=== PATIENT | female | born 1985 | race Two or more races ===

== ENCOUNTER 2025-04-30 04:43 | Emergency (ER) | payer MEDICAID, OTHER ==
[~2025-04-30] VITALS: Ht 170.2 cm; Wt 82.0 kg
[2025-04-30 04:43] VITALS: TEMP 98.6
--- NOTE | 2025-04-30 05:14 | ED.PDOC ---
History of Present Illness HPI Comments 40 y/o obese F is BIBA for 2x day history of epigastric abdominal pain, that radiates, diffusely, across her entire abdomen, with associated nausea and vomiting and shortness of breath. Patient endorses on progressively worsening symptoms following initial, unprovoked onset. She reports a relevant history of asthma, cholecystectomy, and and having no relief with her respiratory symptoms after using her albuterol. Vitals were noted by EMS to have been stable and within normal limits, with exception of diffused wheezing. En route, patient received 1x Albuterol breathing treatment and 1x PO and 2x IV doses of 4mg Zofran. Patient denies any bloody or bilious vomitus, urinary symptoms, diarrhea, fever, chills, or further associated symptoms. Time Seen by MD: 04:50 Reviewed Notes: Nurses Notes, Table Machine Operator Notes, Medications, Allergies Allergies: Coded Allergies: NO KNOWN ALLERGIES (Unverified , 04/30/25) Information Source: Patient, Emergency Med Personnel Mode of Arrival: EMS Severity: Moderate Timing: Days Duration: Since onset Prehospital treatment: 12 Lead EKG, Breathing Tx (Albuterol ), Problem Manager, Treatment (Zofran ) Past Medical History PAST MEDICAL HISTORY: Asthma, Depression Past Medical History (Other): Chronic nerve pain Surgical History: Cholecystectomy, Surgical History (Other): Bladder sling CLASSIFICATION COUNSELOR History: No Pertinent CLASSIFICATION COUNSELOR History Family History Family History: Unknown Social History Smoker: Non-Smoker Alcohol: Denies ETOH Use Drugs: Denies Drug Use Lives In: Home All Other Systems: Reviewed and Negative (As per HPI) Physical Exam General Appearance: Mild Distress, Obese HEENT: Normal ENT Inspection, Pharynx Normal, TMs Normal Neck: Full Range of Motion, Non-Tender, Normal, Normal Inspection Respiratory: Chest Non-Tender, No Accessory Muscle Use, No Respiratory Distress, Wheezing (scattered expiratory wheezes) Cardiovascular: No Edema, No JVD, No Murmur, No Gallop, Normal Peripheral Pulses, Regular Rate/Rhythm Breast Exam: Deferred Gastrointestinal: Epigastric (tenderness ), No Organomegaly, No Pulsatile Mass, Normal Bowel Sounds, Soft, Tenderness (epigastric region ) Genitalia: Deferred Pelvic: Deferred Rectal: Deferred Extremities: No calf tenderness, Normal capillary refill, Normal inspection, Normal range of motion, Non-tender, No pedal edema Musculoskeletal : Apperance: Normal Neurologic: Alert, program director/traffic director II-XII nml as Tested, No Motor Deficits, Normal Affect, Normal Mood, No Sensory Deficits Cerebellar Function: Normal Reflexes: Normal Skin: Dry, Normal Color, Warm Lymphatic: No Adenopathy Was a procedure done? Was a procedure done?: No Differential Dx Considerations may include: gastritis, gastroenteritis, GERD, PUD, cholelithiasis, cholecystitis, UTI, viral syndrome, , pancreatitis, colitis, sbo, ischemic bowel, appendicitis, p erforated viscus, spoiled food, among others X-Ray, Labs, Meds, VS Vital Signs Date Time Temp Pulse Resp B/P (MAP) Pulse Ox O2 Delivery O2 Flow Rate FiO2 04/30/25 05:53 84 16 127/80 04/30/25 05:23 95 24 135/88 04/30/25 05:15 20 96 Room Air* 0 21 04/30/25 04:43 98.6 85 26 133/78 (96) 100 98.6 Lab Test 04/30/25 05:22 Range/Units White Blood Count 17.3 H 4.4-10.8 10^3/uL Red Blood Count 5.38 H 4.0-5.20 10^6/uL Hemoglobin 15.3 12.2-16.2 g/dL Hematocrit 44.9 36.0-46.0 % Mean Corpuscular Volume 83.5 80.0-100.0 fL Mean Corpuscular Hemoglobin 28.4 28.0-32.0 pg Mean Corpuscular Hemoglobin Concent 34.1 32.0-36.0 g/dL Red Cell Distribution Width 12.9 11.8-14.3 % Platelet Count 359 140-450 10^3/uL Mean Platelet Volume 8.5 6.9-10.8 fL Neutrophils (%) (Auto) 79.4 37.0-80.0 % Lymphocytes (%) (Auto) 15.6 10.0-50.0 % Monocytes (%) (Auto) 4.1 0.0-12.0 % Eosinophils (%) (Auto) 0.1 0.0-7.0 % Basophils (%) (Auto) 0.8 0.0-2.0 % Neutrophils # (Auto) 13.8 H 1.6-8.6 10 ^3/uL Lymphocytes # (Auto) 2.7 0.4-5.4 10 ^3/uL Monocytes # (Auto) 0.7 0-1.3 10 ^3/uL Eosinophils # (Auto) 0 0-0.8 10 ^3/uL Basophils # (Auto) 0.1 0-0.2 10 ^3/uL Nucleated Red Blood Cells 0.0 % Sodium Level 137 136-145 mmol/L Potassium Level 3.6 3.5-5.1 mmol/L Chloride Level 103 98-107 mmol/L Carbon Dioxide Level 17 L 20-31 mmol/L Anion Gap 17 H 5-15 Blood Urea Nitrogen 13 9-23 mg/dL Creatinine 0.75 0.550-1.02 mg/dL Glomerular Filtration Rate Calc 104 >90 mL/min BUN/Creatinine Ratio 17.3 10.0-20.0 Serum Glucose 203 H 74-106 mg/dL Calcium Level 9.4 8.7-10.4 mg/dL Total Bilirubin 0.7 0.2-1.0 mg/dL Aspartate Amino Transferase (AST) 19 <34 U/L Alanine Aminotransferase (ALT) 18 7-40 U/L Alkaline Phosphatase 84 46-116 U/L Total Protein 7.3 5.7-8.2 g/dL Albumin 4.8 3.2-4.8 g/dL Lipase 32 12-53 U/L Current Medications Medications (Trade) Dose Ordered Sig/Brit Route Start Time Stop Time Status Last Admin Ondansetron HCl (Zofran) 4 mg ONCE ONCE IV 04/30/25 05:00 04/30/25 05:01 DC 04/30/25 05:22 Sodium Chloride 1,000 ml @ 1,000 mls/hr Q1H ONCE IVB 04/30/25 05:00 04/30/25 05:59 DC 04/30/25 05:22 Morphine Sulfate 4 mg ONCE ONCE IV 04/30/25 05:00 04/30/25 05:01 DC 04/30/25 05:23 Dexamethasone Sodium Phosphate (Decadron Injection) 10 mg ONCE ONCE IV 04/30/25 05:00 04/30/25 05:01 DC 04/30/25 05:22 Albuterol (Ventolin Medneb) 5 mg ONCE ONCE NEB 04/30/25 05:00 04/30/25 05:01 DC 04/30/25 05:15 Metoclopramide HCl (Reglan Injection) 10 mg ONCE ONCE IV 04/30/25 05:45 04/30/25 05:46 DC 04/30/25 05:42 Diphenhydramine HCl (Benadryl Injection) 25 mg ONCE ONCE IV 04/30/25 05:45 04/30/25 05:46 DC 04/30/25 05:42 Time of 1ST Reevaluation: 05:20 Reevaluation 1ST: Unchanged Time of 2ND Reevaluation: 08:32 Reevaluation 3RD: pt eloped Patient Education/Counseling: Diagnosis, Treatment, Need For Follow Up Family Education/Counseling: No Family Present Comments pt refused to stay for the ct and wants to sign out AMA, understanding the risks and benefits, and had her questions answered. after an lengthy discussion, pt decided to stay despite of agreeing to saty after our conversation, pt eloped after all Departure 1 Departure Time of Disposition: 08:32 Impression: Primary Impression: Abdominal pain Qualified Codes: R10.9 - Unspecified abdominal pain Additional Impression: Leukocytosis Qualified Codes: D72.829 - Elevated white blood cell count, unspecified Disposition: LEFT AWOL/ELOPED Condition: Other (unknown) Critical Care Note Critical Care Time?: Yes (45 min-critical care time only) Critical care comment: Due to concerns for patients condition deteriorating, the care required my high est level of attention and readiness to intervene. I assessed the patient, reviewed the medical records, ordered the appropriate tests and treatments, then reassessed for results and responsiveness. I communicated with medical personnel and consultants and formulated a plan of care. Total critical care time excludes any procedures Stability Stability form required: No Heart Score Heart Score: Heart Score Response (Comments) Value History N/A 0 EKG N/A 0 Age N/A 0 Risk Factors N/A 0 Troponin N/A 0 Total 0 I personally scribed for ROSALIND CURRIE MD ([email or web address]) on 04/30/25 at 05:14. Electronically submitted by Albino Burk ([email or web address]). ROSALIND CURRIE MD Apr 30, 2025 05:14 KWAME CRANE MD Apr 30, 2025 07:07
[2025-04-30 05:15] VITALS: O2SAT 96
[2025-04-30] MEDS: ALBUTEROL SULF 2.5 MG/0.5ML(0.5%) NEB SOLN NEB ONE (05:15)
[2025-04-30] MEDS: DexAMETHasone SOD PHOS 10MG/1ML VIAL INJ IV ONE (05:22)
[2025-04-30] MEDS: SODIUM CHLORIDE 0.9% 1,000 ML IVB ONE (05:22)
[2025-04-30] MEDS: ONDANSETRON HCL 4 MG/2 ML VIAL IV ONE (05:22)
[2025-04-30] MEDS: MORPHINE SULFATE 4 MG/ML SYR/VIAL IV ONE (05:23)
[2025-04-30 05:30] LABS: Basophils # (auto) 0.1 10 ^3/uL (0-0.2); Basophils % (auto) 0.8 % (0.0-2.0); Eosinophils # (auto) 0 10 ^3/uL (0-0.8); Eosinophils % (auto) 0.1 % (0.0-7.0); Hematocrit 44.9 % (36.0-46.0); Hemoglobin 15.3 g/dL (12.2-16.2); Lymphocytes # (auto) 2.7 10 ^3/uL (0.4-5.4); Lymphocytes % (auto) 15.6 % (10.0-50.0); Mean Corpuscular Hemoglobin 28.4 pg (28.0-32.0); Mean Corpuscular Hgb Conc. 34.1 g/dL (32.0-36.0); Mean Corpuscular Volume 83.5 fL (80.0-100.0); Monocytes # (auto) 0.7 10 ^3/uL (0-1.3); Monocytes % (auto) 4.1 % (0.0-12.0); Neutrophils # (auto) 13.8 10 ^3/uL (1.6-8.6); Neutrophils % (auto) 79.4 % (37.0-80.0); Platelet Count (auto) 359 10^3/uL (140-450); Red Blood Cells 5.38 10^6/uL (4.0-5.20); Red Cell Distribution Width 12.9 % (11.8-14.3); White Blood Cell 17.3 10^3/uL (4.4-10.8)
[2025-04-30] MEDS: METOCLOPRAMIDE HCL 5MG/ml INJ 2ml VIAL IV ONE (05:42)
[2025-04-30] MEDS: diphenhdrAMINE HCL 50 MG/1 ML VL IV ONE (05:42)
[2025-04-30 05:48] LABS: Alanine Aminotransferase 18 U/L (7-40); Albumin 4.8 g/dL (3.2-4.8); Alkaline Phosphatase 84 U/L (46-116); Anion Gap 17 (5-15); Aspartate Aminotransferase 19 U/L (<34); BUN/Creatinine Ratio 17.3 (10.0-20.0); Bilirubin, Total 0.7 mg/dL (0.2-1.0); Blood Urea Nitrogen 13 mg/dL (9-23); Calcium 9.4 mg/dL (8.7-10.4); Carbon Dioxide 17 mmol/L (20-31); Chloride 103 mmol/L (98-107); Glucose 203 mg/dL (74-106); Lipase 32 U/L (12-53); Potassium 3.6 mmol/L (3.5-5.1); Sodium 137 mmol/L (136-145); Total Protein 7.3 g/dL (5.7-8.2)
[2025-04-30 05:53] VITALS: BP 127/80; PULSE 84; RESP 16
[2025-04-30] MEDS ORDERED: IOHEXOL 300 MG/ML 100ML BOTTLE IJ ONE (07:55)
== END 2025-04-30 08:35 | disposition left against medical advice (07) ==
LOC: EDBD 04:43 → ER 04:43
DX: R10.13 Epigastric pain (principal); D72.829 Elevated white blood cell count, unspecified; J45.909 Unspecified asthma, uncomplicated; F32.A Depression, unspecified; Z98.890 Other specified postprocedural states; Z90.49 Acquired absence of other specified parts of digestive tract; Z88.8 Allergy status to other drugs, medicaments and biological substances
CPT/HCPCS: 36415; 80053; 83690; 85025; 94640; 96361; 96374; 96375; 99284; J1100; J1200; J2270; J2405; J2765; J7030